=== PATIENT | female | born 1975 | race Caucasian/White ===

== ENCOUNTER 2017-05-21 01:14 | Emergency (ER) | payer BC, OTHER ==
[~2017-05-21] VITALS: Ht 162.6 cm; Wt 61.5 kg
[~2017-05-21 01:14] MED LIST: CITA20TA4 PO; DIAZ2 PO; GLUC500C3 PO; MAGN500T4 PO; TAB-TAB PO
[2017-05-21 01:17] VITALS: BP 139/72; PULSE 68; RESP 16; TEMP 98.6; O2SAT 98
[2017-05-21] MEDS ORDERED: BUPR150XL PO ×2 (01:23)
[2017-05-21] MEDS ORDERED: SODIUM CHLOR 0.9% 1000 ML INJ 1,000 ML IV SCH (01:44)
[2017-05-21] MEDS ORDERED: SODIUM CHLORIDE 0.9% FLUSH 10 ML FLUSH IV FLUSH PRN (01:45)
[2017-05-21] MEDS ORDERED: KETOROLAC TROMETHAMINE 30 MG/ML (IVP) VIAL IVP ONE (01:45)
[2017-05-21] MEDS ORDERED: ONDANSETRON HCL 4 MG/2 ML VIAL IVP ONE (01:45)
[2017-05-21] MEDS ORDERED: MORPHINE SULFATE 4 MG/ML INJ IV PUSH ONE (01:45)
[2017-05-21 01:48] VITALS: O2SAT 99
--- NOTE | 2017-05-21 01:52 | PD ---
HPI Chief Complaint: Abdominal Pain Time Seen by Provider: 01:36 Travel History International Travel<30 days: No Contact w/Intl Traveler<30days: [place] Country Traveled to: [place] Traveled to known affect area: No History of Present Illness HPI The patient is a 41-year-old female who presents emergency department for right sided abdominal pain that started Roman night. The pain is been ongoing for approximately 24 hours, persistent, slightly worse after eating lunch. The patient has been belching, but denies any outright nausea or vomiting. The pain is localized to the right lower abdomen and right flank, is worse with palpation, there are no current alleviating factors. The patient's last bowel movement was earlier today, she has not passed any flatus in the last several hours. Previous abdominal surgeries include section and partial hysterectomy with removal of the left ovary. She does have a history of a gallstone, but denies any history of chronic biliary colic or previous pancreatitis. She denies any dysuria, frequency, urgency, or vaginal discharge. The patient's last meal was at approximately 2:30 PM, she did not eat dinner because she was not hungry, has mild anorexia. PFSH Past Medical History Hx Anticoagulant Therapy: No Anxiety: Yes (PANIC ATTACK) Cancer: No Cardiovascular Problems: No Chemotherapy: No Cerebrovascular Accident: No Diabetes: No Diminished Hearing: No Endocrine: No Gastrointestinal Disorders: No Genitourinary: No Hepatitis: No Hiatal Hernia: No Hypertension: No Immune Disorder: No Musculoskeletal: No Neurologic: No Psychiatric: Yes (anxiety) Respiratory: No Thyroid Disease: No Tetanus Vaccination: Unknown ?: Not Ovarian Cysts: Yes (LAPROSCOPIC SURGERY) Past Surgical History Abdominal Surgery: Yes (hernia ) AICD: No Section: Yes (2) Gynecologic Surgery: Yes (2 c sections) Hysterectomy: Yes Joint Replacement: No Oral Surgery: Yes (SINUS SURGERY) Pacemaker: No Thoracic Surgery: Yes (breast reduction 2003) Other Surgery: Yes (BREAST REDUCTION) Social History Alcohol Use: Yes (WINE, MIX DRINKS OCCAS.) Tobacco Use: No Substance Use: No Allergies-Medications (Allergen,Severity, Reaction): Coded Allergies: No Known Allergies (Verified , 05/21/17) Reported Meds & Prescriptions Reported Meds & Active Scripts Active Reported Wellbutrin Xl 24 HR (Bupropion HCl) 150 Mg Tab 150 Mg PO DAILY Review of Systems Except as stated in HPI: all other systems reviewed are Neg General / Constitutional: Positive: Chills, No: Fever Cardiovascular: No: Chest Pain or Discomfort Respiratory: No: Shortness of Breath Gastrointestinal: Positive: Abdominal Pain, Loss of Appetite, No: Nausea, Vomiting, Diarrhea Genitourinary: No: Urgency, Frequency, Dysuria Skin: No Rash Physical Exam Narrative GENERAL: Awake, alert, pleasant 41-year-old female who appears her stated age is in no acute respiratory distress. SKIN: Focused skin assessment warm/dry. HEAD: Atraumatic. Normocephalic. EYES: Pupils equal and round. No scleral icterus. No injection or drainage. ENT: No nasal bleeding or discharge. Mucous membranes pink and moist. NECK: Trachea midline. No JVD. CARDIOVASCULAR: Regular rate and rhythm. No murmur appreciated. RESPIRATORY: No accessory muscle use. Clear to auscultation. Breath sounds equal bilaterally. GASTROINTESTINAL: Abdomen soft, tender to palpation right lower quadrant. Negative Collazo's. Positive McBurney's. MUSCULOSKELETAL: No obvious deformities. No clubbing. No cyanosis. No edema. NEUROLOGICAL: Awake and alert. No obvious cranial nerve deficits. Motor grossly within normal limits. Normal speech. PSYCHIATRIC: Appropriate mood and affect; insight and judgment normal. Data Data Last Documented VS Vital Signs Date Time Temp Pulse Resp B/P Pulse Ox O2 Delivery O2 Flow Rate FiO2 05/21/17 01:48 99 Room Air 05/21/17 01:17 98.6 68 16 139/72 Orders Complete Blood Count With Diff (05/21/17 01:44) Comprehensive Metabolic Panel (05/21/17 01:44) Lipase (05/21/17 01:44) Urinalysis - C+S If Indicated (05/21/17 01:44) Ct Abd/Pel W/O Iv Contrast (05/21/17 01:44) Iv Access Insert/Monitor (05/21/17 01:44) Ecg Monitoring (05/21/17 01:44) Oximetry (05/21/17 01:44) Morphine Inj (Morphine Inj) (05/21/17 01:45) Ondansetron Inj (Zofran Inj) (05/21/17 01:45) Sodium Chlor 0.9% 1000 Ml Inj (Ns 1000 M (05/21/17 01:44) Sodium Chloride 0.9% Flush (Ns Flush) (05/21/17 01:45) Ketorolac Inj (Toradol Inj) (05/21/17 01:45) Labs Laboratory Tests Test 05/21/17 01:48 White Blood Count 10.4 TH/MM3 Red Blood Count 4.37 MIL/MM3 Hemoglobin 13.1 GM/DL Hematocrit 38.7 % Mean Corpuscular Volume 88.7 FL Mean Corpuscular Hemoglobin 30.1 PG Mean Corpuscular Hemoglobin 33.9 % Concent Red Cell Distribution Width 13.0 % Platelet Count 301 TH/MM3 Mean Platelet Volume 7.9 FL Neutrophils (%) (Auto) 52.1 % Lymphocytes (%) (Auto) 37.0 % Monocytes (%) (Auto) 9.2 % Eosinophils (%) (Auto) 1.2 % Basophils (%) (Auto) 0.5 % Neutrophils # (Auto) 5.4 TH/MM3 Lymphocytes # (Auto) 3.9 TH/MM3 Monocytes # (Auto) 1.0 TH/MM3 Eosinophils # (Auto) 0.1 TH/MM3 Basophils # (Auto) 0.0 TH/MM3 CBC Comment DIFF FINAL Differential Comment Urine Color LIGHT-YELLOW Urine Turbidity CLEAR Urine pH 7.0 Urine Specific [place] 1.010 Urine Protein NEG mg/dL Urine Glucose (UA) NEG mg/dL Urine Ketones NEG mg/dL Urine Occult Blood NEG Urine Nitrite NEG Urine Bilirubin NEG Urine Urobilinogen LESS THAN 2.0 MG/DL Urine Leukocyte Esterase NEG Urine RBC 1 /hpf Urine WBC 1 /hpf Urine Squamous Epithelial <1 /hpf Cells Urine Amorphous Sediment RARE Urine Mucus FEW /lpf Microscopic Urinalysis Comment CULT NOT INDICATED Sodium Level 140 MEQ/L Potassium Level 3.5 MEQ/L Chloride Level 106 MEQ/L Carbon Dioxide Level 27.8 MEQ/L Anion Gap 6 MEQ/L Blood Urea Nitrogen 13 MG/DL Creatinine 0.76 MG/DL Estimat Glomerular Filtration 84 ML/MIN Rate Random Glucose 83 MG/DL Calcium Level 8.9 MG/DL Total Bilirubin 0.5 MG/DL Aspartate Amino Transf 14 U/L (AST/SGOT) Alanine Aminotransferase 17 U/L (ALT/SGPT) Alkaline Phosphatase 44 U/L Total Protein 7.2 GM/DL Albumin 3.8 GM/DL Lipase 185 U/L [facility] Medical Decision Making Medical Screen Exam Complete: Yes Emergency Medical Condition: Yes Medical Record Reviewed: Yes Interpretation(s) CT reveals benign hepatic cyst, diverticulosis without diverticulitis, normal appendix. Laboratory Tests Test 05/21/17 01:48 White Blood Count 10.4 TH/MM3 Red Blood Count 4.37 MIL/MM3 Hemoglobin 13.1 GM/DL Hematocrit 38.7 % Mean Corpuscular Volume 88.7 FL Mean Corpuscular Hemoglobin 30.1 PG Mean Corpuscular Hemoglobin 33.9 % Concent Red Cell Distribution Width 13.0 % Platelet Count 301 TH/MM3 Mean Platelet Volume 7.9 FL Neutrophils (%) (Auto) 52.1 % Lymphocytes (%) (Auto) 37.0 % Monocytes (%) (Auto) 9.2 % Eosinophils (%) (Auto) 1.2 % Basophils (%) (Auto) 0.5 % Neutrophils # (Auto) 5.4 TH/MM3 Lymphocytes # (Auto) 3.9 TH/MM3 Monocytes # (Auto) 1.0 TH/MM3 Eosinophils # (Auto) 0.1 TH/MM3 Basophils # (Auto) 0.0 TH/MM3 CBC Comment DIFF FINAL Differential Comment Urine Color LIGHT-YELLOW Urine Turbidity CLEAR Urine pH 7.0 Urine Specific [place] 1.010 Urine Protein NEG mg/dL Urine Glucose (UA) NEG mg/dL Urine Ketones NEG mg/dL Urine Occult Blood NEG Urine Nitrite NEG Urine Bilirubin NEG Urine Urobilinogen LESS THAN 2.0 MG/DL Urine Leukocyte Esterase NEG Urine RBC 1 /hpf Urine WBC 1 /hpf Urine Squamous Epithelial <1 /hpf Cells Urine Amorphous Sediment RARE Urine Mucus FEW /lpf Microscopic Urinalysis Comment CULT NOT INDICATED Sodium Level 140 MEQ/L Potassium Level 3.5 MEQ/L Chloride Level 106 MEQ/L Carbon Dioxide Level 27.8 MEQ/L Anion Gap 6 MEQ/L Blood Urea Nitrogen 13 MG/DL Creatinine 0.76 MG/DL Estimat Glomerular Filtration 84 ML/MIN Rate Random Glucose 83 MG/DL Calcium Level 8.9 MG/DL Total Bilirubin 0.5 MG/DL Aspartate Amino Transf 14 U/L (AST/SGOT) Alanine Aminotransferase 17 U/L (ALT/SGPT) Alkaline Phosphatase 44 U/L Total Protein 7.2 GM/DL Albumin 3.8 GM/DL Lipase 185 U/L Differential Diagnosis Differential diagnoses includes appendicitis, atypical cholecystitis, diverticulitis, pyelonephritis, nephrolithiasis, partial small bowel obstruction , surgical adhesions, ovarian torsion, ovarian cyst. Narrative Course IV was established, labs are drawn and sent, and the patient was placed on cardiac telemetry monitoring and continuous pulse oximetry monitoring. The patient was administered morphine, Zofran, Toradol, and IV fluids. UA was sent to lab. Laboratory evaluation is unremarkable. White count is normal. LFTs and lipase are normal. UA is negative. CT reveals hepatic cyst, patient is aware of having hepatic cyst. There are no acute findings on CT. The patient' s pain had improved. The patient is advised to return if symptoms worsen or progress, she develops fever, or develops intractable nausea/vomiting. The patient will be given a copy of her CT results and lab results at discharge. Diagnosis Primary Impression: Abdominal pain Qualified Code: R10.31 - Right lower quadrant abdominal pain Patient Instructions: General Instructions, Narcotic given in the ED Additional Instructions: Please provide a patient a copy of her lab results and CT results at discharge. Follow-up with her primary physician. Return for fever, intractable nausea/ vomiting, or progressing symptoms. Med/Other Pt SpecificInfo: Prescription(s) given Scripts Ondansetron Odt (Zofran Odt)4 Mg Tab4 Mg SL Q6HR PRN (Nausea/Vomiting) #7 TAB Ref 0 Prov:Florian Fagan MD 05/21/17 Hydrocodone-Acetaminophen ([place])5-325 mg Tab1 Tab PO Q6H PRN (PAIN) #15 TAB Ref 0 Prov:Florian Fagan MD 05/21/17 Disposition: 01 DISCHARGE HOME Condition: Stable Florian Fagan MD May 21, 2017 01:52
[2017-05-21 02:06] LABS: AUTOMATED NEUTROPHIL # 5.4 TH/MM3 (1.8-7.7); BASOPHIL % 0.5 % (0.0-2.0); EOSINOPHIL # 0.1 TH/MM3 (0-0.4); EOSINOPHIL % 1.2 % (0.0-4.0); HEMATOCRIT 38.7 % (35.0-46.0); HEMO FLAGS DIFF FINAL; LYMPHOCYTE # 3.9 TH/MM3 (1.0-4.8); MEAN CELL VOLUME 88.7 FL (80.0-100.0); MEAN CORPUSCULAR HEMOGLOBIN 30.1 PG (27.0-34.0); MEAN CORPUSCULAR HGB CONC 33.9 % (32.0-36.0); MONO % 9.2 % (0.0-8.0); NEUT % 52.1 % (16.0-70.0); PLATELET COUNT 301 TH/MM3 (150-450); RED BLOOD COUNT 4.37 MIL/MM3 (4.00-5.30); WHITE BLOOD COUNT 10.4 TH/MM3 (4.0-11.0)
[2017-05-21 02:15] LABS: BLOOD, URINE NEG (NEG); COMMENT (UR) CULT NOT INDICATED; CULTURE IF INDICATED CULT NOT INDICATED; GLUCOSE,URINE NEG (NEG); KETONE, URINE NEG (NEG); MUCUS URINE FEW /lpf (OCC); NITRITE,URINE NEG (NEG); SQUAMOUS EPITHELIAL CELL URINE <1 /hpf (0-5); URINE COLOR LIGHT-YELLOW (YELLW/STRAW)
--- NOTE | 2017-05-21 02:19 | RADRPT ---
EXAM DATE/TIME: 05/21/2017 01:58 [facility] COMPARISON: No previous studies available for comparison. INDICATIONS : Right sided flank pain radiating to back. Rule out appendicitis. ORAL CONTRAST: No oral contrast ingested. RADIATION DOSE: 5.91 CTDIvol (mGy) MEDICAL HISTORY : Ovarian cysts. SURGICAL HISTORY : Hysterectomy. section.Breast reduction. ENCOUNTER: Initial ACUITY: 1 day PAIN SCALE: 7/10 LOCATION: Right flank TECHNIQUE: Volumetric scanning of the abdomen and pelvis was performed. Using automated exposure control and ad justment of the mA and/or kV according to patient size, radiation dose was kept as low as reasonably achievable to obtain optimal diagnostic quality images. DICOM format image data is available electro nically for review and comparison. FINDINGS: LOWER LUNGS: The visualized lower lungs are clear. LIVER: Homogeneous density without lesion. There is no dilation of the biliary tree. No calcified gallston es. Hepatic cyst along the inferior right lobe. SPLEEN: Normal size without lesion. PANCREAS: Within normal limits. KIDNEYS: Normal in size and shape. There is no mass, stone, or hydronephrosis. ADRENAL GLANDS: Within normal limits. VASCULAR: There is no aortic aneurysm. BOWEL/MESENTERY: Scattered diverticulosis without diverticulitis. There is no free intraperitoneal air or fluid. The appendix is normal. ABDOMINAL WALL: Within normal limits. RETROPERITONEUM: There is no lymphadenopathy. BLADDER: No wall thickening or mass. REPRODUCTIVE: Within normal limits. INGUINAL: There is no lymphadenopathy or hernia. MUSCULOSKELETAL: Within normal limits for patient age. CONCLUSION: 1. Benign hepatic cyst. 2. Scattered diverticulosis without diverticulitis. 3. Normal appendix. Colin Espinoza MD on May 21, 2017 at 2:15 Board Certified Radiologist. This report was verified electronically.
[2017-05-21 02:31] LABS: ALT (GPT) 17 U/L (10-53); ANION GAP 6 MEQ/L (5-15); AST (GOT) 14 U/L (15-37); BICARBONATE 27.8 MEQ/L (21.0-32.0); BLOOD UREA NITROGEN 13 MG/DL (7-18); CHLORIDE 106 MEQ/L (98-107); GLOMERULAR FILTRATION RATE 84 ML/MIN (>89); POTASSIUM 3.5 MEQ/L (3.5-5.1); SODIUM (NA) 140 MEQ/L (136-145)
[2017-05-21 02:34] LABS: ALKALINE PHOSPHATASE 44 U/L (45-117); TOTAL BILIRUBIN ADULT 0.5 MG/DL (0.2-1.0)
[2017-05-21] MEDS ORDERED: NORC5TAB PO (03:44)
[2017-05-21] MEDS ORDERED: ZOFR4TAB3 SL (03:44)
[2017-05-22] MEDS ORDERED: MAGN200T PO ×2 (13:29)
[2017-05-22] MEDS ORDERED: WOMETAB5 PO ×2 (13:29)
[2017-05-22] MEDS ORDERED: TH GCAP PO ×2 (13:36)
[2017-05-22] MEDS ORDERED: PRIL20TA2 PO ×2 (13:36)
[2017-05-22] MEDS ORDERED: SIME180C7 PO ×2 (13:36)
== END 2017-05-21 04:00 | disposition home or self-care (01) ==
LOC: NEPC 01:14
DX: R10.31 Right lower quadrant pain (principal); K76.89 Other specified diseases of liver
CPT/HCPCS: 74176; 80053; 81001; 83690; 85025; 96361; 96374; 96375; 99285; J1885; J2270; J2405; J7030

== ENCOUNTER 2017-05-22 09:23 | Observation (INO) | payer BC ==
[~2017-05-22] VITALS: Ht 162.6 cm; Wt 61.0 kg
[~2017-05-22 09:23] MED LIST changes: +BUPR150XL PO; +NORC5TAB PO; +ZOFR4TAB3 SL
[2017-05-22 09:25] VITALS: BP 170/74; PULSE 74; RESP 20; TEMP 97.7; O2SAT 100
[2017-05-22] MEDS ORDERED: SODIUM CHLOR 0.9% 1000 ML INJ 1,000 ML IV SCH (10:49)
[2017-05-22] MEDS ORDERED: KETOROLAC TROMETHAMINE 30 MG/ML (IVP) VIAL IVP ONE (11:00)
[2017-05-22] MEDS ORDERED: ONDANSETRON HCL 4 MG/2 ML VIAL IVP ONE (11:00)
[2017-05-22] MEDS ORDERED: SODIUM CHLORIDE 0.9% FLUSH 10 ML FLUSH IV FLUSH PRN ×2 (11:00→13:45)
[2017-05-22 11:32] LABS: AUTOMATED NEUTROPHIL # 6.1 TH/MM3 (1.8-7.7); BASOPHIL % 0.3 % (0.0-2.0); EOSINOPHIL % 0.5 % (0.0-4.0); HEMO FLAGS DIFF FINAL; LYMPH % 19.1 % (9.0-44.0); LYMPHOCYTE # 1.6 TH/MM3 (1.0-4.8); MEAN CELL VOLUME 88.2 FL (80.0-100.0); MEAN CORPUSCULAR HEMOGLOBIN 29.9 PG (27.0-34.0); MEAN CORPUSCULAR HGB CONC 33.9 % (32.0-36.0); MONO % 9.3 % (0.0-8.0); NEUT % 70.8 % (16.0-70.0); PLATELET COUNT 279 TH/MM3 (150-450); RED BLOOD COUNT 4.31 MIL/MM3 (4.00-5.30); RED CELL DISTRIBUTION WIDTH 12.6 % (11.6-17.2); WHITE BLOOD COUNT 8.6 TH/MM3 (4.0-11.0)
[2017-05-22 11:38] LABS: BACTERIA, URINE OCC /hpf; BLOOD, URINE NEG (NEG); COMMENT (UR) CULT NOT INDICATED; CULTURE IF INDICATED CULT NOT INDICATED; GLUCOSE,URINE NEG (NEG); KETONE, URINE NEG (NEG); NITRITE,URINE NEG (NEG); PH, URINE 5.5 (5.0-8.5); SQUAMOUS EPITHELIAL CELL URINE <1 /hpf (0-5); URINE COLOR LIGHT-YELLOW (YELLW/STRAW)
[2017-05-22 12:01] LABS: ANION GAP 7 MEQ/L (5-15); AST (GOT) 14 U/L (15-37); BICARBONATE 25.3 MEQ/L (21.0-32.0); BLOOD UREA NITROGEN 11 MG/DL (7-18); CHLORIDE 108 MEQ/L (98-107); GLOMERULAR FILTRATION RATE 91 ML/MIN (>89); POTASSIUM 3.8 MEQ/L (3.5-5.1); SODIUM (NA) 140 MEQ/L (136-145)
[2017-05-22 12:02] LABS: ALT (GPT) 18 U/L (10-53)
[2017-05-22 12:04] LABS: ALKALINE PHOSPHATASE 48 U/L (45-117); TOTAL BILIRUBIN ADULT 0.6 MG/DL (0.2-1.0)
--- NOTE | 2017-05-22 12:11 | RADRPT ---
EXAM DATE/TIME: 05/22/2017 11:01 [facility] COMPARISON: No previous studies available for comparison. INDICATIONS : Right upper quadrant pain. MEDICAL HISTORY : Hernia. Anxiety. Nausea. SURGICAL HISTORY : section. Hysterectomy. Sinus surgery. Breast reduction. Laproscopic surgery. ENCOUNTER: Initial ACUITY: 4-6 days PAIN SCORE: 9/10 LOCATION: Right upper quadrant MEASUREMENTS: LIVER: 14.9 cm length COMMON DUCT: 4 mm RIGHT KIDNEY: 10.6 x 3.7 x 4.1 cm FINDINGS: LIVER: 5 cm cyst in the right lobe. No biliary ductal dilatation. COMMON DUCT: No intraluminal mass or stone visualized. GALLBLADDER: Abnormal appearance with wall thickening and wall adherent masses which may be adherent sludge or andra yps. No mobile shadowing stones. No pericholecystic fluid. PANCREAS: The visualized portions are within normal limits. RIGHT KIDNEY: No evidence of hydronephrosis, stone, or mass. CONCLUSION: Liver cyst. Abnormal gallbladder appearance. Hansel Yanez MD on May 22, 2017 at 12:06 Board Certified Radiologist. This report was verified electronically.
--- NOTE | 2017-05-22 12:42 | PD ---
HPI Chief Complaint: Abdominal Pain Time Seen by Provider: 10:18 Travel History International Travel<30 days: Yes Contact w/Intl Traveler<30days: Yes Name of Country Traveled to: [place] Traveled to known affect area: No History of Present Illness HPI Patient is a 41-year-old female who returns to the emergency with complaints of abdominal pain. Patient reports that she has been having constant abdominal pain since Monday night. Patient reports that pain is her pain is located in her right upper abdomen. Patient reports that she was seen in the emergency room last night and had a CT of abdomen and pelvis, reports that her lab work and her studies were benign and patient was discharged home with instructions for outpatient follow-up. Patient reports that she has had previous abdominal surgeries including a x2 as well as a partial hysterectomy. Patient does have history of gallstones in the past, reports that she has had biliary colic in the past. Denies fever/chills. Reports nausea with no vomiting. Denies chest pain/sob. Denies dysuria/urgency/freq. PFSH Past Medical History Hx Anticoagulant Therapy: No Anxiety: Yes (PANIC ATTACK) Cancer: No Cardiovascular Problems: No Chemotherapy: No Cerebrovascular Accident: No Diabetes: No Diminished Hearing: No Endocrine: No Gastrointestinal Disorders: No Genitourinary: No Hepatitis: No Hiatal Hernia: No Hypertension: No Immune Disorder: No Musculoskeletal: No Neurologic: No Psychiatric: Yes (anxiety) Respiratory: No Thyroid Disease: No ?: Unknown Ovarian Cysts: Yes (LAPROSCOPIC SURGERY) Past Surgical History Abdominal Surgery: Yes (hernia ) AICD: No Section: Yes (2) Gynecologic Surgery: Yes (2 c sections) Hysterectomy: Yes Joint Replacement: No Oral Surgery: Yes (SINUS SURGERY) Pacemaker: No Thoracic Surgery: Yes (breast reduction 2003) Other Surgery: Yes (BREAST REDUCTION) Social History Alcohol Use: Yes Tobacco Use: No Substance Use: No Allergies-Medications (Allergen,Severity, Reaction): Coded Allergies: No Known Allergies (Verified , 05/21/17) Reported Meds & Prescriptions Reported Meds & Active Scripts Active Zofran Odt (Ondansetron Odt) 4 Mg Tab 4 Mg SL Q6HR PRN [place] (Hydrocodone-Acetaminophen) 5-325 mg Tab 1 Tab PO Q6H PRN Reported Wellbutrin Xl 24 HR (Bupropion HCl) 150 Mg Tab 150 Mg PO DAILY Review of Systems General / Constitutional: No: Fever Eyes: No: Visual changes HENT: No: Headaches Cardiovascular: No: Chest Pain or Discomfort Respiratory: No: Shortness of Breath Gastrointestinal: Positive: Nausea, Abdominal Pain, No: Vomiting, Diarrhea Genitourinary: No: Dysuria Musculoskeletal: No: Pain Skin: No Rash Neurologic: No: Weakness Psychiatric: No: Depression Endocrine: No: Polydipsia Hematologic/Lymphatic: No: Easy Bruising Physical Exam Narrative GENERAL: Mild distress SKIN: Focused skin assessment warm/dry. HEAD: Atraumatic. Normocephalic. EYES: Pupils equal and round. No scleral icterus. No injection or drainage. ENT: No nasal bleeding or discharge. Mucous membranes pink and moist. NECK: Trachea midline. No JVD. CARDIOVASCULAR: Regular rate and rhythm. No murmur appreciated. RESPIRATORY: No accessory muscle use. Clear to auscultation. Breath sounds equal bilaterally. GASTROINTESTINAL: Abdomen soft, patient with tenderness to right upper quadrant , positive Collazo's sign MUSCULOSKELETAL: No obvious deformities. No clubbing. No cyanosis. No edema. NEUROLOGICAL: Awake and alert. No obvious cranial nerve deficits. Motor grossly within normal limits. Normal speech. PSYCHIATRIC: Appropriate mood and affect; insight and judgment normal. Data Data Last Documented VS Vital Signs Date Time Temp Pulse Resp B/P Pulse Ox O2 Delivery O2 Flow Rate FiO2 05/22/17 09:25 97.7 74 20 170/74 100 Room Air Orders Complete Blood Count With Diff (05/22/17 10:49) Comprehensive Metabolic Panel (05/22/17 10:49) Lipase (05/22/17 10:49) Urinalysis - C+S If Indicated (05/22/17 10:49) Us Abdomen Gallbladder (05/22/17 ) Iv Access Insert/Monitor (05/22/17 10:49) Ondansetron Inj (Zofran Inj) (05/22/17 11:00) Sodium Chlor 0.9% 1000 Ml Inj (Ns 1000 M (05/22/17 10:49) Sodium Chloride 0.9% Flush (Ns Flush) (05/22/17 11:00) Ketorolac Inj (Toradol Inj) (05/22/17 11:00) Ed Urine Pregnancytest Poc (05/22/17 10:49) Admit Order (Ed Use Only) (05/22/17 12:59) Labs Laboratory Tests Test 05/22/17 11:09 White Blood Count 8.6 TH/MM3 Red Blood Count 4.31 MIL/MM3 Hemoglobin 12.9 GM/DL Hematocrit 38.0 % Mean Corpuscular Volume 88.2 FL Mean Corpuscular Hemoglobin 29.9 PG Mean Corpuscular Hemoglobin 33.9 % Concent Red Cell Distribution Width 12.6 % Platelet Count 279 TH/MM3 Mean Platelet Volume 8.2 FL Neutrophils (%) (Auto) 70.8 % Lymphocytes (%) (Auto) 19.1 % Monocytes (%) (Auto) 9.3 % Eosinophils (%) (Auto) 0.5 % Basophils (%) (Auto) 0.3 % Neutrophils # (Auto) 6.1 TH/MM3 Lymphocytes # (Auto) 1.6 TH/MM3 Monocytes # (Auto) 0.8 TH/MM3 Eosinophils # (Auto) 0.0 TH/MM3 Basophils # (Auto) 0.0 TH/MM3 CBC Comment DIFF FINAL Differential Comment Urine Color LIGHT-YELLOW Urine Turbidity CLEAR Urine pH 5.5 Urine Specific [place] 1.003 Urine Protein NEG mg/dL Urine Glucose (UA) NEG mg/dL Urine Ketones NEG mg/dL Urine Occult Blood NEG Urine Nitrite NEG Urine Bilirubin NEG Urine Urobilinogen LESS THAN 2.0 MG/DL Urine Leukocyte Esterase NEG Urine RBC LESS THAN 1 /hpf Urine WBC LESS THAN 1 /hpf Urine Squamous Epithelial <1 /hpf Cells Urine Bacteria OCC /hpf Microscopic Urinalysis Comment CULT NOT INDICATED Sodium Level 140 MEQ/L Potassium Level 3.8 MEQ/L Chloride Level 108 MEQ/L Carbon Dioxide Level 25.3 MEQ/L Anion Gap 7 MEQ/L Blood Urea Nitrogen 11 MG/DL Creatinine 0.71 MG/DL Estimat Glomerular Filtration 91 ML/MIN Rate Random Glucose 80 MG/DL Calcium Level 8.8 MG/DL Total Bilirubin 0.6 MG/DL Aspartate Amino Transf 14 U/L (AST/SGOT) Alanine Aminotransferase 18 U/L (ALT/SGPT) Alkaline Phosphatase 48 U/L Total Protein 6.9 GM/DL Albumin 3.7 GM/DL Lipase 170 U/L MDM Medical Decision Making Medical Screen Exam Complete: Yes Emergency Medical Condition: Yes Interpretation(s) Vital Signs Date Time Temp Pulse Resp B/P Pulse Ox O2 Delivery O2 Flow Rate FiO2 05/22/17 09:25 97.7 74 20 170/74 100 Room Air Vital Signs Date Time Temp Pulse Resp B/P Pulse Ox O2 Delivery O2 Flow Rate FiO2 05/22/17 09:25 97.7 74 20 170/74 100 Room Air Laboratory Tests Test 05/22/17 11:09 White Blood Count 8.6 TH/MM3 (4.0-11.0) Red Blood Count 4.31 MIL/MM3 (4.00-5.30) Hemoglobin 12.9 GM/DL (11.6-15.3) Hematocrit 38.0 % (35.0-46.0) Mean Corpuscular Volume 88.2 FL (80.0-100.0) Mean Corpuscular Hemoglobin 29.9 PG (27.0-34.0) Mean Corpuscular Hemoglobin 33.9 % Concent (32.0-36.0) Red Cell Distribution Width 12.6 % (11.6-17.2) Platelet Count 279 TH/MM3 (150-450) Mean Platelet Volume 8.2 FL (7.0-11.0) Neutrophils (%) (Auto) 70.8 % (16.0-70.0) Lymphocytes (%) (Auto) 19.1 % (9.0-44.0) Monocytes (%) (Auto) 9.3 % (0.0-8.0) Eosinophils (%) (Auto) 0.5 % (0.0-4.0) Basophils (%) (Auto) 0.3 % (0.0-2.0) Neutrophils # (Auto) 6.1 TH/MM3 (1.8-7.7) Lymphocytes # (Auto) 1.6 TH/MM3 (1.0-4.8) Monocytes # (Auto) 0.8 TH/MM3 (0-0.9) Eosinophils # (Auto) 0.0 TH/MM3 (0-0.4) Basophils # (Auto) 0.0 TH/MM3 (0-0.2) CBC Comment DIFF FINAL Differential Comment Urine Color LIGHT-YELLOW (YELLW/STRAW) Urine Turbidity CLEAR (CLEAR) Urine pH 5.5 (5.0-8.5) Urine Specific [place] 1.003 (1.002-1.035) Urine Protein NEG mg/dL (NEG-TRACE) Urine Glucose (UA) NEG mg/dL (NEG) Urine Ketones NEG mg/dL (NEG) Urine Occult Blood NEG (NEG) Urine Nitrite NEG (NEG) Urine Bilirubin NEG (NEG) Urine Urobilinogen LESS THAN 2.0 MG/DL (LESS THAN 2.0) Urine Leukocyte Esterase NEG (NEG) Urine RBC LESS THAN 1 /hpf (0-3) Urine WBC LESS THAN 1 /hpf (0-5) Urine Squamous Epithelial <1 /hpf (0-5) Cells Urine Bacteria OCC /hpf (NONE) Microscopic Urinalysis Comment CULT NOT INDICATED Sodium Level 140 MEQ/L (136-145) Potassium Level 3.8 MEQ/L (3.5-5.1) Chloride Level 108 MEQ/L (98-107) Carbon Dioxide Level 25.3 MEQ/L (21.0-32.0) Anion Gap 7 MEQ/L (5-15) Blood Urea Nitrogen 11 MG/DL (7-18) Creatinine 0.71 MG/DL (0.50-1.00) Estimat Glomerular Filtration 91 ML/MIN (>89) Rate Random Glucose 80 MG/DL (74-106) Calcium Level 8.8 MG/DL (8.5-10.1) Total Bilirubin 0.6 MG/DL (0.2-1.0) Aspartate Amino Transf 14 U/L (15-37) (AST/SGOT) Alanine Aminotransferase 18 U/L (10-53) (ALT/SGPT) Alkaline Phosphatase 48 U/L (45-117) Total Protein 6.9 GM/DL (6.4-8.2) Albumin 3.7 GM/DL (3.4-5.0) Lipase 170 U/L (73-393) Last Impressions Gall Bladder Ultrasound 05/22/17 0000 Signed Impressions: Service Date/Time: Monday, May 22, 2017 11:01 - CONCLUSION: Liver cyst. Abnormal gallbladder appearance. aHnsel Yanez MD Differential Diagnosis Differential includes acute cholecystitis, pyelonephritis, nephrolithiasis Narrative Course Patient is a 41-year-old female who returns to emergency for evaluation of right upper quadrant abdominal pain. Patient reports that her symptoms began on Monday and having constant. Patient was seen in the emergency room last night and had a CT of her abdomen and pelvis which showed benign hepatic cysts, scattered diverticulosis without diverticulitis, normal appendix, patient returns to emergency room as symptoms have worsened. Patient reports that she feels nauseous, reports that he is hard for her to stand and ambulate due to her pain. I did review labs from yesterday as well as CT study Laboratory Tests Test 05/22/17 11:09 White Blood Count 8.6 TH/MM3 (4.0-11.0) Red Blood Count 4.31 MIL/MM3 (4.00-5.30) Hemoglobin 12.9 GM/DL (11.6-15.3) Hematocrit 38.0 % (35.0-46.0) Mean Corpuscular Volume 88.2 FL (80.0-100.0) Mean Corpuscular Hemoglobin 29.9 PG (27.0-34.0) Mean Corpuscular Hemoglobin 33.9 % Concent (32.0-36.0) Red Cell Distribution Width 12.6 % (11.6-17.2) Platelet Count 279 TH/MM3 (150-450) Mean Platelet Volume 8.2 FL (7.0-11.0) Neutrophils (%) (Auto) 70.8 % (16.0-70.0) Lymphocytes (%) (Auto) 19.1 % (9.0-44.0) Monocytes (%) (Auto) 9.3 % (0.0-8.0) Eosinophils (%) (Auto) 0.5 % (0.0-4.0) Basophils (%) (Auto) 0.3 % (0.0-2.0) Neutrophils # (Auto) 6.1 TH/MM3 (1.8-7.7) Lymphocytes # (Auto) 1.6 TH/MM3 (1.0-4.8) Monocytes # (Auto) 0.8 TH/MM3 (0-0.9) Eosinophils # (Auto) 0.0 TH/MM3 (0-0.4) Basophils # (Auto) 0.0 TH/MM3 (0-0.2) CBC Comment DIFF FINAL Differential Comment Urine Color LIGHT-YELLOW (YELLW/STRAW) Urine Turbidity CLEAR (CLEAR) Urine pH 5.5 (5.0-8.5) Urine Specific [place] 1.003 (1.002-1.035) Urine Protein NEG mg/dL (NEG-TRACE) Urine Glucose (UA) NEG mg/dL (NEG) Urine Ketones NEG mg/dL (NEG) Urine Occult Blood NEG (NEG) Urine Nitrite NEG (NEG) Urine Bilirubin NEG (NEG) Urine Urobilinogen LESS THAN 2.0 MG/DL (LESS THAN 2.0) Urine Leukocyte Esterase NEG (NEG) Urine RBC LESS THAN 1 /hpf (0-3) Urine WBC LESS THAN 1 /hpf (0-5) Urine Squamous Epithelial <1 /hpf (0-5) Cells Urine Bacteria OCC /hpf (NONE) Microscopic Urinalysis Comment CULT NOT INDICATED Sodium Level 140 MEQ/L (136-145) Potassium Level 3.8 MEQ/L (3.5-5.1) Chloride Level 108 MEQ/L (98-107) Carbon Dioxide Level 25.3 MEQ/L (21.0-32.0) Anion Gap 7 MEQ/L (5-15) Blood Urea Nitrogen 11 MG/DL (7-18) Creatinine 0.71 MG/DL (0.50-1.00) Estimat Glomerular Filtration 91 ML/MIN (>89) Rate Random Glucose 80 MG/DL (74-106) Calcium Level 8.8 MG/DL (8.5-10.1) Total Bilirubin 0.6 MG/DL (0.2-1.0) Aspartate Amino Transf 14 U/L (15-37) (AST/SGOT) Alanine Aminotransferase 18 U/L (10-53) (ALT/SGPT) Alkaline Phosphatase 48 U/L (45-117) Total Protein 6.9 GM/DL (6.4-8.2) Albumin 3.7 GM/DL (3.4-5.0) Lipase 170 U/L (73-393) labs were repeated today including lft's. ruq us ordered RUQ shows abnormal appearance with wall thickening and wall adherent masses which may be adherent sludge or polyps. No mobile shadowing stones. No pericholecystic fluid. Common bile duct measures 4 mm in size. I reviewed all labs and all studies with patient in detail. Patient continues to have pain. Will review case with general surgeon case reviewed with Dr. Talbert. Plan to obs to his service for serial abdominal evaluation Diagnosis Primary Impression: Intractable abdominal pain Admitting Information Admitting Physician Requests: Observation Elodia Patel DO May 22, 2017 12:42
[2017-05-22] MEDS ORDERED: WOMETAB5 PO ×2 (13:29)
[2017-05-22] MEDS ORDERED: MAGN200T PO ×2 (13:29)
[2017-05-22] MEDS ORDERED: TH GCAP PO ×2 (13:36)
[2017-05-22] MEDS ORDERED: SIME180C7 PO ×2 (13:36)
[2017-05-22] MEDS ORDERED: PRIL20TA2 PO ×2 (13:36)
[2017-05-22] MEDS ORDERED: ONDANSETRON HCL 4 MG/2 ML VIAL IV PRN (13:45)
[2017-05-22] MEDS ORDERED: diphenhydrAMINE HCL 50 MG/ML VIAL IV PRN (13:45)
[2017-05-22] MEDS ORDERED: HYDROmorphone HCL PF 1 MG/ML VIAL IV PUSH PRN (13:45)
[2017-05-22 14:10] VITALS: BP 131/75; PULSE 62; RESP 16; O2SAT 100
[2017-05-22] MEDS: SODIUM CHLOR 0.9% 1000 ML INJ 1,000 ML IV SCH ×2 (14:20→23:38)
[2017-05-22] MEDS: HYDROmorphone HCL PF 1 MG/ML VIAL IV PUSH PRN ×2 (14:49→22:17)
--- NOTE | 2017-05-22 15:31 | HHI.HP ---
[facility] Service General surgery Primary Care Physician Martell Brandon DO Admission Diagnosis Intractable abdominal pain Chief Complaint: Abdominal pain History of Present Illness This is a 41-year-old female presents with severe unrelenting right upper quadrant abdominal pain. She was evaluated in the emergency department last night with the same complaint, however, lab work and CT abdomen and pelvis were essentially normal and therefore she was discharged home. The pain persisted and continued in severity and she presented again to the emergency department. Lab work again was essentially normal but ultrasound of the gallbladder was abnormal revealing wall thickening and adherent masses which could be consistent with polyps or sludge. The patient states that they have recently been on vacation and so her diet was not very healthy. This episode of persistent pain began Monday night after eating a meal of chicken wings and woke her up from sleep. The pain is in the epigastrium right upper quadrant and radiating around the right side to the back. Review of Systems Constitutional: DENIES: Fever, Chills Eyes: DENIES: Eye inflammation, Eye pain Ears, nose, mouth, throat: DENIES: Hearing loss, Epistaxis Respiratory: DENIES: Cough, Shortness of breath Cardiovascular: DENIES: Chest pain, Palpitations Gastrointestinal: COMPLAINS OF: Abdominal pain Musculoskeletal: DENIES: Muscle aches, Stiffness Integumentary: DENIES: Pruritus, Rash Neurologic: DENIES: Seizures, Speech Problems Past Family Social History Past Medical History None Past Surgical History 2 left inguinal hernia repair Reported Medications Reported Meds & Active Scripts Active Zofran Odt (Ondansetron Odt) 4 Mg Tab 4 Mg SL Q6HR PRN [place] (Hydrocodone-Acetaminophen) 5-325 mg Tab 1 Tab PO Q6H PRN Reported Prilosec (Omeprazole Magnesium) Unknown Strength Tab Unknown Dose PO ONCE Phazyme (Simethicone) 180 Mg Capsule 180 Mg PO ONCE Glucosamine & Chondroitin Cap (Glucosam/Chondr/Collagn/Hyalur) 1 Each Capsule 1 Cap PO DAILY Magnesium 200 Mg Tab 400 Mg PO DAILY Womens One Daily (Multiple Vitamins W/ Minerals) 1 Tab Tab 1 Tab PO DAILY Wellbutrin Xl 24 HR (Bupropion HCl) 150 Mg Tab 150 Mg PO DAILY Allergies: Coded Allergies: No Known Allergies (Verified , 05/21/17) Active Ordered Medications Current Medications Medications (Trade) Dose Ordered Sig/Lonnie Route Start Time Stop Time Status Last Admin Sodium Chloride 2 ml 2 ml UNSCH PRN IV FLUSH 05/22/17 11:00 (NS 1000 ml Inj) 1,000 ml @ 100 mls/hr Q10H IV 05/22/17 13:38 05/22/17 14:20 (NS Flush) 2 ml UNSCH PRN IV FLUSH 05/22/17 13:45 (NS Flush) 2 ml BID IV FLUSH 05/22/17 21:00 (Zofran Inj) 4 mg Q6H PRN IV 05/22/17 13:45 (Benadryl Inj) 25 mg Q6H PRN IV 05/22/17 13:45 (Dilaudid Pf Inj) 0.5 mg Q3H PRN IV PUSH 05/22/17 13:45 05/22/17 14:49 (Dilaudid Pf Inj) 1 mg Q3H PRN IV PUSH 05/22/17 13:45 Family History Noncontributory Social History Occasional alcohol. No tobacco or drug use. Physical Exam Vital Signs Vital Signs Date Time Temp Pulse Resp B/P Pulse Ox O2 Delivery O2 Flow Rate FiO2 05/22/17 15:28 16 05/22/17 14:10 62 16 131/75 100 Room Air 05/22/17 09:25 97.7 74 20 170/74 100 Room Air Physical Exam GENERAL: Awake and alert. No acute distress. Cooperative. HEAD: Normocephalic. Atraumatic. EYES: Pupils equal round and reactive to light bilaterally. No scleral icterus. CHEST: Lungs clear to auscultation bilaterally with no wheezing or rhonchi. No respiratory distress. CARDIOVASCULAR: Regular rate and rhythm. ABDOMEN: Nondistended. Moderate to severe tenderness in the right upper quadrant with positive Collazo sign. EXTREMITIES: No cyanosis or edema. SKIN: Warm, dry, nonjaundiced. Laboratory Laboratory Tests Test 05/22/17 11:09 White Blood Count 8.6 Red Blood Count 4.31 Hemoglobin 12.9 Hematocrit 38.0 Mean Corpuscular Volume 88.2 Mean Corpuscular Hemoglobin 29.9 Mean Corpuscular Hemoglobin 33.9 Concent Red Cell Distribution Width 12.6 Platelet Count 279 Mean Platelet Volume 8.2 Neutrophils (%) (Auto) 70.8 Lymphocytes (%) (Auto) 19.1 Monocytes (%) (Auto) 9.3 Eosinophils (%) (Auto) 0.5 Basophils (%) (Auto) 0.3 Neutrophils # (Auto) 6.1 Lymphocytes # (Auto) 1.6 Monocytes # (Auto) 0.8 Eosinophils # (Auto) 0.0 Basophils # (Auto) 0.0 CBC Comment DIFF FINAL Differential Comment Urine Color LIGHT-YELLOW Urine Turbidity CLEAR Urine pH 5.5 Urine Specific [place] 1.003 Urine Protein NEG Urine Glucose (UA) NEG Urine Ketones NEG Urine Occult Blood NEG Urine Nitrite NEG Urine Bilirubin NEG Urine Urobilinogen LESS THAN 2.0 Urine Leukocyte Esterase NEG Urine RBC LESS THAN 1 Urine WBC LESS THAN 1 Urine Squamous Epithelial <1 Cells Urine Bacteria OCC Microscopic Urinalysis Comment CULT NOT INDICATED Sodium Level 140 Potassium Level 3.8 Chloride Level 108 Carbon Dioxide Level 25.3 Anion Gap 7 Blood Urea Nitrogen 11 Creatinine 0.71 Estimat Glomerular Filtration 91 Rate Random Glucose 80 Calcium Level 8.8 Total Bilirubin 0.6 Aspartate Amino Transf 14 (AST/SGOT) Alanine Aminotransferase 18 (ALT/SGPT) Alkaline Phosphatase 48 Total Protein 6.9 Albumin 3.7 Lipase 170 Result Diagram: 05/22/17 1109 05/22/17 1109 Imaging Last Impressions Gall Bladder Ultrasound 05/22/17 0000 Signed Impressions: Service Date/Time: Monday, May 22, 2017 11:01 - CONCLUSION: Liver cyst. Abnormal gallbladder appearance. Hansel Yanez MD Assessment and Plan Assessment and Plan 41 yo F with biliary colic, abnormal gallbladder on ultrasound with wall thickening and sludge or adherent masses to the gallbladder wall. Due to her severe persistent right upper quadrant pain with history consistent with acute cholecystitis and abnormal gallbladder ultrasound, I recommend to proceed with laparoscopic cholecystectomy, possible open. I discussed the details of the surgery and risks including common bile duct injury and need for open procedure. She desires to proceed with the operation which will be performed tomorrow. NitishKin fonseca MD May 22, 2017 15:31
[2017-05-22 16:29] VITALS: BP 121/63; PULSE 71; RESP 16; TEMP 98.7; O2SAT 98
[2017-05-22] MEDS: SODIUM CHLORIDE 0.9% FLUSH 10 ML FLUSH IV FLUSH SCH (19:31)
[2017-05-22 19:36] VITALS: BP 113/72; PULSE 60; RESP 18; TEMP 98.7; O2SAT 97
[2017-05-23 00:04] VITALS: BP 107/62; PULSE 58; RESP 18; TEMP 97.9; O2SAT 95
[2017-05-23 04:57] VITALS: BP 105/56; PULSE 62; RESP 18; TEMP 98.4; O2SAT 96
[2017-05-23 07:24] VITALS: BP 113/57; PULSE 60; RESP 16; TEMP 97.6; O2SAT 97
[2017-05-23] MEDS: SODIUM CHLORIDE 0.9% FLUSH 10 ML FLUSH IV FLUSH SCH (09:00)
[2017-05-23] MEDS: SODIUM CHLOR 0.9% 1000 ML INJ 1,000 ML IV SCH (09:38)
[2017-05-23] MEDS ORDERED: ACETAMINOPHEN 325 MG TAB PO PRN (09:45)
[2017-05-23 11:08] VITALS: BP 102/56; PULSE 58; RESP 18; TEMP 98.4; O2SAT 96
[2017-05-23] MEDS ORDERED: PROPOFOL 200 MG/20 ML AMP IV ONE (11:17)
[2017-05-23] MEDS ORDERED: ONDANSETRON HCL 4 MG/2 ML VIAL IV PUSH ONE (11:18)
[2017-05-23] MEDS ORDERED: NEOSTIGMINE 3 MG/3 ML SYR IV ONE (11:18)
[2017-05-23] MEDS ORDERED: LACTATED RINGER'S 1000 ML INJ 1,000 ML IV ONE (11:18)
[2017-05-23] MEDS ORDERED: FAMOTIDINE 20 MG/2 ML VIAL ONE (15:10)
[2017-05-23] MEDS ORDERED: APREPITANT 40 MG CAP ONE (15:10)
--- NOTE | 2017-05-23 15:42 | HHI.PR ---
Subjective Subjective Notes Tolerated some diet yesterday. Pain present but better. Objective Vitals/I&O Vital Signs Date Time Temp Pulse Resp B/P Pulse Ox O2 Delivery O2 Flow Rate FiO2 05/23/17 11:08 98.4 58 18 102/56 96 05/22/17 14:10 Room Air Radiology Last Impressions Gall Bladder Ultrasound 05/22/17 0000 Signed Impressions: Service Date/Time: Monday, May 22, 2017 11:01 - CONCLUSION: Liver cyst. Abnormal gallbladder appearance. Hansel Yanez MD Narrative Exam NAD RUQ ttp A/P Assessment and Plan 41 yo F with biliary colic Proceed to OR for lap angela, possible open. NitishKin fonseca MD May 23, 2017 15:42
[2017-05-23] MEDS ORDERED: MIDAZOLAM HCL 2 MG/2 ML VIAL ONE ×2 (15:51→16:07)
[2017-05-23] MEDS ORDERED: BUPIVACAINE HCL PF 0.5% 30 ML VIAL ONE (15:58)
[2017-05-23] MEDS ORDERED: ARTIFICIAL TEARS OPTH OINT 3.5 APPLIC/3.5 GM TUBO ONE (16:07)
[2017-05-23] MEDS ORDERED: ceFAZolin 2 GM PREMIX 50 ML ONE (16:48)
[2017-05-23] MEDS ORDERED: metroNIDAZOLE 500 MG INJ 100 ML IV ONE (16:48)
[2017-05-23] MEDS ORDERED: ACETAMINOPHEN/HYDROcodone 325 MG/5 MG TAB PO PRN ×2 (17:45)
[2017-05-23] MEDS ORDERED: NORC5TAB PO (17:47)
--- NOTE | 2017-05-23 17:53 | PD.OP ---
cc: Kin Talbert MD Operative Report Date of Surgery: May 23, 2017 Preoperative Diagnosis: (1) Biliary colic Postoperative Diagnosis: (1) Biliary colic Procedure: Laparoscopic cholecystectomy Anesthesia: GETA Surgeon: Kin Talbert Medical Sales(s): Scotty Blum Operation and Findings: Complications: None apparent EBL: 10 cc Operative findings: Moderate gallbladder wall edema. No gallstones identified. She had an apparent simple cyst in the right lateral lobe of the liver approximate 7 cm. Procedure in detail: The patient was taken to the operating room and placed in the supine position. General endotracheal anesthesia was induced. The abdomen was prepped and draped in usual sterile fashion and a surgical timeout was performed to verify correct patient procedure and site. Appropriate perioperative antibiotics were administered. Local anesthetic was injected in the skin and subcutaneous tissue superior to the umbilicus and a 5 mm incision performed. The abdomen was entered using the Optiview 5 mm trocar with direct laparoscopic visualization. The abdomen was then insufflated to 15 mmHg with CO2 gas which the patient tolerated well. Next a 12 mm port was placed in the epigastrium and two 5 mm ports in the right upper quadrant and right lateral abdomen. The patient was placed in reverse Trendelenburg position and turned slightly to the left. Attention was turned to the right upper quadrant and the dome of the gallbladder was grasped and retracted cephalad. There was moderate gallbladder wall inflammation and edema. The infundibulum was retracted laterally to expose Calot's triangle. Blunt dissection and judicious use of electrocautery was used to expose the cystic duct and the cystic artery directly entering the gallbladder. Two clips were placed proximally on each of these structures and one distally and they were transected. The gallbladder was then removed from the liver bed using electrocautery. Hemostasis was achieved. The gallbladder was then removed from the abdomen using an Endo Catch bag. The clips were in place on the cystic duct and cystic artery stumps with no bleeding or bile leakage. There was noted to be an proximally 7 cm apparent simple cyst in the right lateral liver. At this point, the abdomen was allowed to desufflate and trochars were removed. The fascia at the 12 mm port site was closed with 0 Vicryl suture. Skin was closed with subcuticular 4-0 Monocryl as well as Dermabond. The patient tolerated the procedure well and was extubated and taken to PACU in stable condition. All sponge and instrument counts were correct. Kin Talbert MD May 23, 2017 17:52
[2017-05-23] MEDS ORDERED: fentaNYL CITRATE 250 MCG/5 ML AMP ONE (18:00)
[2017-05-23] MEDS ORDERED: *morphine SULFATE 8 MG/ML PERIprocedure ONLY ONE (18:08)
[2017-05-23] MEDS ORDERED: *ONDANSETRON 4 MG VIAL PERIprocedural Use ONLY ONE (18:13)
[2017-05-23] MEDS ORDERED: DO NOT ADM ANY ANTICOAGULANT DRUGS PRN (18:30)
== END 2017-05-23 22:22 | disposition home or self-care (01) ==
LOC: NEPE 09:23 → NEDA 13:01 → NEPGCP 14:54 → N07B 05-23 14:16
PROVIDERS: ADMIT Surgery; ATTEND Surgery
DX: K80.50 Calculus of bile duct without cholangitis or cholecystitis without obstruction (principal); K82.4 Cholesterolosis of gallbladder; K76.89 Other specified diseases of liver; R10.11 Right upper quadrant pain; R11.0 Nausea; F41.9 Anxiety disorder, unspecified; K57.90 Diverticulosis of intestine, part unspecified, without perforation or abscess without bleeding
CPT/HCPCS: 00790; 47562; 76705; 80053; 81001; 83690; 84703; 85025; 88304; 96374; 96375; 99285; G0378; J0690; J1170; J1200; J1885; J2250; J2270; J2405; J2710; J3010; J7030; J7120; J8501